=== PATIENT | female | born 1960 | race Caucasian/White ===

== ENCOUNTER 2016-10-06 14:37 | Emergency (ER) | payer OTHER ==
[2016-10-06] MEDS ORDERED: IOPAMIDOL 370 (76%) IV.SOLN 150 ML IV ONE (14:38)
[2016-10-06 16:10] LABS: ABSOLUTE NEUTROPHIL COUNT 5.3 K/mm3 (1.8-7.7); BASO # 0.1 K/mm3 (0.0-0.2); BASO % 0.8 % (0.2-1.0); EOS # 0.2 (0.0-0.5); EOS % 2.7 % (0.9-2.9); HEMATOCRIT 42.7 % (37.0-47.0); IMM NEUT% 0.3 % (0-1); LYMPH # 2.4 (1.0-4.8); LYMPH % 28.1 % (15-45); MEAN CELL VOLUME 94.9 fl (81.0-99.0); MEAN CORPUSCULAR HEMOGLOBIN 31.1 pg (27.0-31.0); MEAN CORPUSCULAR HGB CONC 32.8 g/dl (33.0-37.0); MEAN PLATELET VOLUME 11.6 fl (7.4-10.4); MONO # 0.6 (0.0-0.8); MONO % 7.2 % (4-12); NEUT % 60.9 % (43-75); PLATELET COUNT 201 K/mm3 (130-400); RED CELL DISTRIBUTION WIDTH 12.3 % (11.5-14.5)
[2016-10-06 16:13] LABS: ALB/GLOB RATIO 1.4 (>1.0); ALBUMIN 3.9 gm/dL (3.5-5.7); CALCIUM 9.3 mg/dL (8.6-10.3)
--- NOTE | 2016-10-06 17:42 | CT ---
CHEST W/ CON, ABD/PELVIS W/ CON COMPARISON: Chest and left RIBS, 10/04/2016 HISTORY: Left upper quadrant pain from recent ground-level fall. Follow-up right lung base lesion seen on previous chest x-ray. Technique: Intravenous injection 125 mL Isovue 370. Using a [employer] Medium Aquilion [address] scanner, images were obtained through the thorax. An automated dose reduction technique was used to minimize patient radiation dose. Dose information: CTDIvol (mGy): 16.60 DLP(mGycm): 1127.90 FINDINGS (CHEST WITH CONTRAST): Lungs: The opacity visible in the right lung on the comparison chest x-ray has resolved. Trachea and bronchi: Normal. Heart and vessels: Normal. Mediastinum and adrien: Normal. Esophagus: Normal. Pleura and pericardium: Normal. Chest wall and bones: No acute finding. No fracture bone destruction. Moderate degenerative changes throughout the spine. FINDINGS (ABDOMEN AND PELVIS WITH CONTRAST): Liver: Normal. Gallbladder: Normal. Bile ducts: Normal. Pancreas: Normal. Spleen: Normal. Adrenal glands: Normal. Kidneys: Bilateral simple cysts. No hydronephrosis. In the interpolar left kidney, 5 mm nonobstructing calculus. Ureters: Normal. Urinary bladder: Normal. Uterus and adnexa: Hysterectomy. Blood vessels: Normal. Lymph nodes: Normal. Stomach: Normal. Duodenum: Normal. Small intestine: Normal. Appendix: Normal Colon: Normal. Abdominal wall and supporting musculature: Normal. Bones: No lytic or blastic lesions. Moderate dextroscoliosis of the lumbar and lower thoracic spine with severe spondylosis at L2-3 and L3-4. IMPRESSION: 1. No acute finding. Concerning the left upper quadrant pain, the spleen is intact. There is no rib fracture or vertebral fracture. No free fluid or abdominal wall lesion. 2. Concerning the opacity in the right lung base, it has resolved. 3. Incidental findings of bilateral simple renal cysts, 5 mm nonobstructing calculus in the left kidney, hysterectomy, moderate dextroscoliosis of the lumbar and lower thoracic spine, and moderate to severe spondylosis of the thoracic lumbar spine. The report was sent to the emergency department electronic medical record system 10/06/2016 at 17:44
== END 2016-10-06 18:38 | disposition home or self-care (01) ==
LOC: ED 14:37
DX: S20.219A Contusion of unspecified front wall of thorax, initial encounter (principal); S80.01XA Contusion of right knee, initial encounter; R10.9 Unspecified abdominal pain; W01.198A Fall on same level from slipping, tripping and stumbling with subsequent striking against other object, initial encounter; Y93.02 Activity, running; Y92.9 Unspecified place or not applicable
CPT/HCPCS: 85025; 80053; 74177; 71260; 99284 ×2; Q9967